=== PATIENT | male | born 1985 | race American Indian/Alaskan Native ===

== ENCOUNTER 2016-09-27 12:11 | Emergency (ER) | payer SELFPAY ==
[2016-09-27 12:19] VITALS: BP 142/77
--- NOTE | 2016-09-27 14:31 | Emergency Department Report ---
- General Chief complaint: Skin Rash Stated complaint: SWOLLEN FACE/NECK Time Seen by Provider: 09/27/16 14:04 Source: patient Mode of arrival: Ambulatory Limitations: No Limitations - History of Present Illness Initial comments: This is a 31-year-old male that presents with left facial skin irritation left facial swelling has been noted 4 days ago. He denies any fever or chills, itching, headache, stiff neck, nausea vomiting, abdominal pain, blurry vision, chest pain or shortness of breath. Patient denies any sick contacts. Patient stated he was sleeping and woke up with a little facial swelling/irritation that is increasing as days go by. Patient denies any allergies. Patient is HIV negative and has random checks every 3-6 months. MD complaint: rash, other (swelling) -: Gradual Location: face (left) Severity scale (0 -10): 8 Quality: burning, aching Improves with: none Worsens with: palpation Associated symptoms: denies other symptoms - Related Data Previous Rx's Medication Instructions Recorded Last Taken Type Sulfamethoxazole/Trimethoprim 1 each PO BID 7 Days 09/27/16 Unknown Rx [Bactrim DS TAB] Valacyclovir HCl [Valtrex] 1,000 mg PO TID 7 Days 09/27/16 Unknown Rx Allergies Allergy/AdvReac Type Severity Reaction Status Date / Time No Known Allergies Allergy Unverified 09/27/16 12:15 Abscess Boil HPI - HPI Chief Complaint: Skin Rash Stated Complaint: SWOLLEN FACE/NECK Time Seen by Provider: 09/27/16 14:04 Home Medications: Previous Rx's Medication Instructions Recorded Last Taken Type Sulfamethoxazole/Trimethoprim 1 each PO BID 7 Days 09/27/16 Unknown Rx [Bactrim DS TAB] Valacyclovir HCl [Valtrex] 1,000 mg PO TID 7 Days 09/27/16 Unknown Rx Allergies/Adverse Reactions: Allergies Allergy/AdvReac Type Severity Reaction Status Date / Time No Known Allergies Allergy Unverified 09/27/16 12:15 ED Review of Systems ROS: Stated complaint: SWOLLEN FACE/NECK Other details as noted in HPI Constitutional: denies: chills, fever Eyes: denies: eye pain, eye discharge, vision change ENT: denies: ear pain, throat pain Respiratory: denies: cough, shortness of breath, wheezing Cardiovascular: denies: chest pain, palpitations Endocrine: no symptoms reported Gastrointestinal: denies: abdominal pain, nausea, diarrhea Genitourinary: denies: urgency, dysuria Musculoskeletal: denies: back pain, joint swelling, arthralgia Skin: rash, other (swelling ). denies: lesions Neurological: denies: headache, weakness, paresthesias Psychiatric: denies: anxiety, depression Hematological/Lymphatic: denies: easy bleeding, easy bruising ED Past Medical Hx - Past Medical History Previous Medical History?: No - Surgical History Past Surgical History?: No - Social History Smoking Status: Current Every Day Smoker Substance Use Type: Alcohol, Marijuana, Non Opiate Pain - Medications Home Medications: Home Medications Medication Instructions Recorded Confirmed Last Taken Type Sulfamethoxazole/Trimethoprim 1 each PO BID 7 Days 09/27/16 Unknown Rx [Bactrim DS TAB] Valacyclovir HCl [Valtrex] 1,000 mg PO TID 7 Days 09/27/16 Unknown Rx ED Physical Exam - General Limitations: No Limitations General appearance: alert, in no apparent distress - Head Head exam: Present: atraumatic, normocephalic - Eye Eye exam: Present: normal appearance, PERRL, EOMI - ENT ENT exam: Present: normal exam, normal orophraynx, mucous membranes moist, TM's normal bilaterally, normal external ear exam - Neck Neck exam: Present: normal inspection, full ROM. Absent: tenderness, meningismus, lymphadenopathy, thyromegaly, other (stiff neck) - Respiratory Respiratory exam: Present: normal lung sounds bilaterally. Absent: respiratory distress, wheezes, rales, rhonchi, stridor, chest wall tenderness, accessory muscle use, decreased breath sounds, prolonged expiratory - Cardiovascular Cardiovascular Exam: Present: regular rate, normal rhythm. Absent: systolic murmur, diastolic murmur, rubs, gallop - GI/Abdominal GI/Abdominal exam: Present: soft, normal bowel sounds. Absent: distended, tenderness, guarding, rebound, rigid, diminished bowel sounds - Rectal Rectal exam: Present: deferred - Extremities Exam Extremities exam: Present: normal inspection, full ROM, normal capillary refill. Absent: tenderness, pedal edema, joint swelling, calf tenderness - Back Exam Back exam: Present: normal inspection, full ROM. Absent: tenderness, CVA tenderness (R), CVA tenderness (L), muscle spasm, paraspinal tenderness, vertebral tenderness, rash noted - Neurological Exam Neurological exam: Present: alert, oriented X3, CN II-XII intact, normal gait - Expanded Neurological Exam Expanded Patient oriented to: Present: person, place, time Speech: Present: fluid speech (normal speech) Cranial nerves: EOM's Intact: Normal, Gag Reflex: Normal, Tongue Deviation: Normal, Nystagmus: Normal, Facial Sensation: Normal, Facial Palsy with Forehead Movement: Normal, Facial Palsy without Forehead Movement: Normal Cerebellar function: Finger to Nose: Normal, Heel to Duncan: Normal, Romberg: Normal Upper motor neuron: Blair Neglect: Normal, Pronator Drift: Normal, Babinski Sign : Normal, Sensory Extinction: Normal Sensory exam: Upper Extremity Light Touch: Normal, Upper Extremity Pin Prick: Normal, Upper Extremity Temperature: Normal, UE 2 Point Discrimination: Normal, Lower Extremity Light Touch: Normal, Lower Extremity Pin Prick: Normal, Lower Extremity Temperature: Normal, LE 2 Point Discrimination: Normal Motor strength exam: RUE: 5, LUE: 5, RLE: 5, LLE: 5 Best Eye Response (Wilbur): (4) open spontaneously Best Motor Response ([place]): (6) obeys commands Best Verbal Response ([place]): (5) oriented Wilbur Total: 15 - Psychiatric Psychiatric exam: Present: normal affect, normal mood - Skin Skin exam: Present: warm, dry, intact, normal color. Absent: rash ED Course Vital Signs 09/27/16 12:16 Temperature 98.9 F Pulse Rate 84 Respiratory 20 Rate Blood Pressure 142/77 O2 Sat by Pulse 98 Oximetry - Reevaluation(s) Reevaluation #2: 09/27/16 14:31 Dr. Rivera was consulted and examined patient. Agrees plan of care and d/c instructions. ED Medical Decision Making - Medical Decision Making ED course: This is a 31-year-old male that presents with cellulitis versus shingles 1- after my physical exam with Dr. Rivera, patient presents with cellulitis versus shingles. 2- patient received Bactrim for 7 days and Valtrex for 7 days. 3- patient was instructed to take full course of antibiotics as prescribed. 4- patient was also instructed to follow-up with his primary care doctor in 3-5 days or if symptoms worsen such as headache, blurry vision, stiff neck, worsening symptoms, nausea vomiting, fever or chills, report back to emergency room 5- at time time of discharge, the patient does not seem toxic or ill in appearance. No acute signs of distress noted. Patient agrees to discharge treatment plan of care. No further questions noted by the patient. - Differential Diagnosis cellulitis versus shingles Critical care attestation.: If time is entered above; I have spent that time in minutes in the direct care of this critically ill patient, excluding procedure time. ED Disposition Clinical Impression: Cellulitis Qualifiers: Site of cellulitis: unspecified site Qualified Code(s): L03.90 - Cellulitis, unspecified Shingles Qualifiers: Herpes zoster complications: unspecified herpes zoster complication Qualified Code(s): B02.8 - Zoster with other complications Disposition: DISCHARGED TO HOME OR SELFCARE Is pt being admited?: No Does the pt Need Aspirin: No Condition: Stable Instructions: Herpes Zoster (ED), Cellulitis (ED) Additional Instructions: follow-up with your primary care doctor in 3-5 days or if symptoms worsen such as headache, blurry vision, stiff neck, worsening symptoms, nausea vomiting, fever or chills, report back to emergency room Take full course of antibiotics as prescribed. Follow-up with her primary care doctor in 3-5 days. Prescriptions: Sulfamethoxazole/Trimethoprim [Bactrim DS TAB] 1 each PO BID 7 Days Valacyclovir HCl [Valtrex] 1,000 mg PO TID 7 Days Referrals: CISCO CORREA MD [Primary Care Provider] - 3-5 Days [facility] [Outside] - 3-5 Days [facility] [Outside] - 3-5 Days NANCI JOSE MD [Staff Physician] - 3-5 Days Forms: Work/School Release Form(ED)
== END 2016-09-27 14:42 | disposition home or self-care (01) ==
LOC: ED 12:11
DX: L03.211 Cellulitis of face (principal); B02.8 Zoster with other complications; F17.200 Nicotine dependence, unspecified, uncomplicated; F12.10 Cannabis abuse, uncomplicated
CPT/HCPCS: 99282

== ENCOUNTER 2019-06-13 16:27 | Emergency (ER) | payer OTHER ==
[2019-06-13 16:34] VITALS: BP 145/66
--- NOTE | 2019-06-13 18:42 | Emergency Department Report ---
Chief Complaint: Upper Respiratory Infection Stated Complaint: THROAT PAIN Time Seen by Provider: 06/13/19 18:40 - HPI History of Present Illness: Mr. Shaw presents with runny nose cough scratchy throat taking nyquil dayquil - Exam Vital Signs: Vital Signs 06/13/19 16:30 Temperature 98.1 F Pulse Rate 102 H Respiratory 20 Rate Blood Pressure 145/66 O2 Sat by Pulse 96 Oximetry Physical Exam: Well appearing HEENT: normal oropharynx, normal voice Lungs CTA B talkative well appearing normal brisk gait. MSE screening note: Focused history and physical exam performed. Due to findings the following was ordered: ED Medical Decision Making - Medical Decision Making URI supportive treatment recommended ED Disposition for MSE Clinical Impression: Upper respiratory infection Disposition: MED SCREENING EXAM-LEFT Is pt being admited?: No Does the pt Need Aspirin: No Condition: Stable Instructions: Upper Respiratory Infection (ED) Forms: Work/School Release Form(ED)
== END 2019-06-13 18:50 | disposition left against medical advice (07) ==
LOC: ED 16:27
DX: J06.9 Acute upper respiratory infection, unspecified (principal)
CPT/HCPCS: 99281

== ENCOUNTER 2020-01-04 10:14 | Emergency (ER) | payer OTHER ==
[2020-01-04] MEDS ORDERED: dexAMETHasone 20 MG/5 ML VIAL IM ONE (12:26)
[2020-01-04] MEDS ORDERED: ALBUTEROL 2.5 MG/3 ML NEBU IH ONE (12:26)
[2020-01-04] MEDS ORDERED: IPRATROPIUM 0.02% NEBU 2.5 ML IH ONE (12:26)
--- NOTE | 2020-01-04 12:51 | XRay Report ---
CHEST PA AND LATERAL VIEWS INDICATION: cough, wheezing. COMPARISON: None. FINDINGS: Support devices: None. Heart: Within normal limits. Lungs/Pleura: No acute pulmonary or pleural findings. IMPRESSION: 1. No acute findings. Signer Name: Leandro Hayden MD Signed: 01/04/2020 12:47 PM Workstation Name: [id number]
--- NOTE | 2020-01-04 13:17 | Emergency Department Report ---
- General Chief Complaint: Upper Respiratory Infection Stated Complaint: COUGHING Time Seen by Provider: 01/04/20 11:57 Source: patient Mode of arrival: Ambulatory Limitations: No Limitations - History of Present Illness Initial Comments: Patient is a 34-year-old male presents emergency room with complaints of a cough with some mucus production that began 3 days ago. He states he has associated chills, subjective fever, rhinorrhea, wheezing. He denies any nausea, vomiting, diarrhea, shortness of breath, chest pain, abdominal pain. No known sick contacts. No recent travel. No past medical history. No allergies to medications. Patient states that he has a smoker. Denies any history of asthma. - Related Data Previous Rx's Medication Instructions Recorded Last Taken Type Sulfamethoxazole/Trimethoprim 1 each PO BID 7 Days tablet 09/27/16 Unknown Rx [Bactrim DS TAB] Valacyclovir HCl [Valtrex] 1,000 mg PO TID 7 Days tab 09/27/16 Unknown Rx Amoxicillin/K Clav Tab [Augmentin 1 each PO ONCE #20 tablet 04/07/18 Unknown Rx 875MG TAB] Cetirizine HCl [ZyrTEC] 10 mg PO DAILY #30 tab 04/07/18 Unknown Rx Ibuprofen [Motrin 800 MG tab] 800 mg PO ONCE PRN #30 tablet 04/07/18 Unknown Rx Polymyxin B Sulf/Trimethoprim 2 drop OP Q4H 10 Days #10 ml 04/07/18 Unknown Rx [Polytrim Eye Drops] Albuterol Sulfate [Proventil Hfa] 6.7 gm IH TID PRN #1 hfa.aer.ad 01/04/20 Unknown Rx Azithromycin [Zithromax TAB] 250 mg PO QDAY 5 Days #6 tablet 01/04/20 Unknown Rx Prednisone [predniSONE 10 mg 10 mg PO .TAPER #1 tab.ds.pk 01/04/20 Unknown Rx (6-Day Pack, 21 Tabs)] Allergies Allergy/AdvReac Type Severity Reaction Status Date / Time No Known Allergies Allergy Unverified 09/27/16 12:15 ED Review of Systems ROS: Stated complaint: COUGHING Other details as noted in HPI Comment: All other systems reviewed and negative ED Past Medical Hx - Past Medical History Previous Medical History?: No - Surgical History Past Surgical History?: No - Social History Smoking Status: Current Every Day Smoker Substance Use Type: Marijuana - Medications Home Medications: Home Medications Medication Instructions Recorded Confirmed Last Taken Type Sulfamethoxazole/Trimethoprim 1 each PO BID 7 Days tablet 09/27/16 Unknown Rx [Bactrim DS TAB] Valacyclovir HCl [Valtrex] 1,000 mg PO TID 7 Days tab 09/27/16 Unknown Rx Amoxicillin/K Clav Tab [Augmentin 1 each PO ONCE #20 tablet 04/07/18 Unknown Rx 875MG TAB] Cetirizine HCl [ZyrTEC] 10 mg PO DAILY #30 tab 04/07/18 Unknown Rx Ibuprofen [Motrin 800 MG tab] 800 mg PO ONCE PRN #30 tablet 04/07/18 Unknown Rx Polymyxin B Sulf/Trimethoprim 2 drop OP Q4H 10 Days #10 ml 04/07/18 Unknown Rx [Polytrim Eye Drops] Albuterol Sulfate [Proventil Hfa] 6.7 gm IH TID PRN #1 hfa.aer.ad 01/04/20 Unknown Rx Azithromycin [Zithromax TAB] 250 mg PO QDAY 5 Days #6 tablet 01/04/20 Unknown Rx Prednisone [predniSONE 10 mg 10 mg PO .TAPER #1 tab.ds.pk 01/04/20 Unknown Rx (6-Day Pack, 21 Tabs)] ED Physical Exam - General Limitations: No Limitations General appearance: alert, in no apparent distress - Head Head exam: Present: atraumatic, normocephalic - Eye Eye exam: Present: normal appearance - ENT ENT exam: Present: mucous membranes moist - Respiratory Respiratory exam: Present: wheezes (bilaterally expiratory), rhonchi (bilaterally). Absent: respiratory distress, rales, stridor, chest wall tenderness, accessory muscle use, decreased breath sounds, prolonged expiratory - Cardiovascular Cardiovascular Exam: Present: regular rate, normal rhythm, normal heart sounds. Absent: systolic murmur, diastolic murmur, rubs, gallop - Neurological Exam Neurological exam: Present: alert, oriented X3 - Psychiatric Psychiatric exam: Present: normal affect, normal mood - Skin Skin exam: Present: warm, dry, intact ED Course Vital Signs 01/04/20 01/04/20 10:23 13:32 Temperature 98.1 F 98.1 F Pulse Rate 71 62 Respiratory 18 18 Rate Blood Pressure 154/80 Blood Pressure 158/85 [Left] O2 Sat by Pulse 94 Oximetry ED Medical Decision Making - Radiology Data Radiology results: report reviewed CHEST PA AND LATERAL VIEWS INDICATION: cough, wheezing. COMPARISON: None. FINDINGS: Support devices: None. Heart: Within normal limits. Lungs/Pleura: No acute pulmonary or pleural findings. IMPRESSION: 1. No acute findings. Signer Name: Leandro Hayden MD Signed: 01/04/2020 12:47 PM Workstation Name: [id number] Transcribed By: Dictated By: Leandro Hayden MD Electronically Authenticated By: Leandro Hayden MD Signed Date/Time: 01/04/201246 DD/ 46 TD/TT: - Medical Decision Making Patient is a 34-year-old male presents emergency room with complaints of a cough with some mucus production that began 3 days ago. He states he has associated chills, subjective fever, rhinorrhea, wheezing. He denies any nausea, vomiting, diarrhea, shortness of breath, chest pain, abdominal pain. No known sick contacts. No recent travel. No past medical history. No allergies to medications. Patient states that he has a smoker. Denies any history of asthma. Initial vitals with mild decrease in oxygen saturation at 94% on room air, improved upon repeat, patient was ambulated by [employer] sports photographer who states that patient maintain sats above 95% or greater. On exam patient has wheezing and rhonchi bilaterally, no respiratory distress, no accessory muscle use. CXR: 1. No acute findings. Patient given nebulizer treatment and steroids and breath sounds improved with just mild expiratory wheeze, very good air movement. Patient will be treated for acute bronchitis. Patient is presenting with the symptoms during a COVID-19 pandemic, discussed the possibility of COVID-19 with patient, discussed strict return precautions, discussed outpatient testing, discussed self quarantine with patient. Patient given prescription for azithromycin, prednisone, albuterol inhaler. Advised patient please take medication as prescribed. Please increase your fluid intake over the next several days. May take Tylenol as needed for fever or body aches. May take okal-pap-ptjuumj cold symptom relief medication such as Mucinex or TheraFlu. Follow-up with a primary care doctor for reexamination. Return to emergency room immediately for any new or worsening symptoms including but not limited to difficulty breathing, shortness of breath, severe chest pain, unable to tolerate by mouth intake, etc. Please self quarantine for 2 weeks from the onset of your symptoms. Please do not go out in public. If you are around others at home please wear a mask. If you need to cough or sneeze please do so in a napkin and immediately throw it away and immediately wash your hands. Wash your hands frequently. Wipe everything down. Recommend for you to get COVID-19 testing, may have this done at primary care doctor, health department, [facility] or [facility] testing center. - Differential Diagnosis PNA, URI, COVID 19, acute bronchitis, asthma, reactive airway, viral Critical care attestation.: If time is entered above; I have spent that time in minutes in the direct care of this critically ill patient, excluding procedure time. ED Disposition Clinical Impression: Acute bronchitis Qualifiers: Bronchitis organism: unspecified organism Qualified Code(s): J20.9 - Acute bronchitis, unspecified Disposition: DC-01 TO HOME OR SELFCARE Is pt being admited?: No Does the pt Need Aspirin: No Condition: Stable Instructions: COVID-19, Acute Bronchitis (ED) Additional Instructions: Please take medication as prescribed. Please increase your fluid intake over the next several days. May take Tylenol as needed for fever or body aches. May take dsgj-tco-hiaoavw cold symptom relief medication such as Mucinex or TheraFlu. Follow-up with a primary care doctor for reexamination. Return to emergency room immediately for any new or worsening symptoms including but not limited to difficulty breathing, shortness of breath, severe chest pain, unable to tolerate by mouth intake, etc. Please self quarantine for 2 weeks from the onset of your symptoms. Please do not go out in public. If you are around others at home please wear a mask. If you need to cough or sneeze please do so in a napkin and immediately throw it away and immediately wash your hands. Wash your hands frequently. Wipe everything down. Recommend for you to get COVID- 19 testing, may have this done at primary care doctor, health department, [facility] or [facility] testing center. Prescriptions: Prednisone [predniSONE 10 mg (6-Day Pack, 21 Tabs)] 10 mg PO .TAPER #1 tab.ds.pk Albuterol Sulfate [Proventil Hfa] 6.7 gm IH TID PRN #1 hfa.aer.ad PRN Reason: Wheezing Azithromycin [Zithromax TAB] 250 mg PO QDAY 5 Days #6 tablet Referrals: CLARISSA SANCHEZ MD [Staff Physician] - 2-3 Days [facility] [Provider Group] - 2-3 Days Time of Disposition: 13:15 Print Language: BOTSWANAN
[2020-01-04 13:34] VITALS: BP 158/85
== END 2020-01-04 14:02 | disposition home or self-care (01) ==
LOC: ED 10:14
DX: J20.9 Acute bronchitis, unspecified (principal); F17.200 Nicotine dependence, unspecified, uncomplicated; F12.10 Cannabis abuse, uncomplicated; Z79.899 Other long term (current) drug therapy
CPT/HCPCS: 71046; 94640; 96372; 99283; J1100